=== PATIENT | female | born 1950 | race African-American/Black ===

== ENCOUNTER 2017-08-29 21:52 | Emergency (ER) | payer OTHER ==
--- NOTE | 2017-08-29 21:58 | ED MVC/FALL/TRAUMA COMPLAINT ---
History of Present Illness General Chief Complaint: Fall Stated Complaint: BIBA FALL Source: patient, old records, EMS Exam Limitations: no limitations Vital Signs & Intake/Output Vital Signs & Intake/Output Vital Signs Date Time Temp Pulse Resp B/P B/P Pulse O2 O2 Flow FiO2 Mean Ox Delivery Rate 08/30 0012 95.7 66 20 132/70 97 Room Air 08/29 2159 96.9 63 18 112/71 97 Room Air ED Intake and Output 08/30 0000 08/29 1200 Intake Total 0 Output Total 0 Balance 0 Intake, Oral 0 Output, Urine 0 Allergies Coded Allergies: No Known Allergies (08/29/17) Triage Nurses Notes Reviewed? yes Onset: Abrupt Duration: minute(s):, constant Timing: recent history Severity: mild Severity Numbers: 8 Injuries/Fall Location: upper extremity Method of Injury: fall Loss of Consciousness: no loss of consciousness No Modifying Factors: none Associated Symptoms: denies HPI: 67-year-old female presents while she was visiting a family member here in the emergency room had a mechanical slip and fall in room 9 fall to the ground onto her left elbow. She denies head strike there is no loss of consciousness. She denies any prodromal dizziness light and is chest pain prior to the fall. She is now complaining of left elbow pain radiating into her forearm. She denies any shoulder pain wrist or hand pain numbness or tingling. She denies any headache vision changes nausea vomiting. No neck or back pain that is new from the fall. She has a history of chronic lower back pain for which she is on Percocet. No abdominal pain, no lower extremity injury (Dain Jeffries) Past History Medical History Any Pertinent Medical History? see below for history Cardiovascular: hypertension Musculoskeletal: CHRONIC BACK PAIN Endocrine: diabetes Surgical History Surgical History: non-contributory Family History Hx Contributory? No (Dain Jeffries) Review of Systems Review of Systems Constitutional: Reports: see HPI. Comments Review of systems: See HPI, All other systems negative. Constitutional, no chills no fever, HEENT: no sore throat no congestion Cardiovascular: No chest pain Skin: no rashes, no change in skin Respiratory: No dyspnea no cough no sputum GI: No nausea no vomiting, no diarrhea, no bloating/constipation : No dysuria No hematuria, no frequency Muscle skeletal: joint pain, no back pain, no neck pain, Neurologic: , no headache Heme/endocrine: No bruising Immunology: No lymphadenopathy (Dain Jeffries) Physical Exam Physical Exam General Appearance: well developed/nourished, alert, awake Comments: Well-developed well-nourished person in no acute distress HEENT: Normal EENT exam; PERRL, EOMI, HEAD is atraumatic. moist mucous membranes. Neck: Supple,nontender normal range of motion Back: Nontender,no midline or paracervical tenderness, Full range of motion Cardiovascular: Regular rate and rhythms no murmur Respiratory: Chest nontender.There were no bony deformities, no asymmetry. No respiratory distress. Patient speaking in full complete sentences. Breath sounds clear to auscultation bilaterally: NO W/R/R Abdomen: Soft, nontender nondistended right upper extremity: atraumatic, from nontender Shoulder: Atraumatic/Stable. FROM . No clavicle tenderness Elbow: tender to palpation over the left elbow there is no ecchymosis or swelling, Atraumatic/stable. FROM. No laxity Upper arm/Forearm: Atraumatic. Nontender. No edema, 5 out of 5 train director strength noted to bilateral upper extremities Hand/Wrist: Atraumatic/stable. Skin intact. FROMno scaphoid tenderness no wrist tenderness Pulses: Normal/equal radial pulses bilaterally. Brisk cap refill LOWER Extremity:atraumatic, no shortening or external rotation noted to bilateral lower extremities No edema, full range of motion of extremities, 5 out of 5 strength noted to bilateral ower extremities Neuro: Alert oriented x3, motor sensory normal, cranial nerves II through XII grossly intact. There were no obvious focal neurologic abnormalities. Skin: No appreciable rash on exposed skin, skin is warm and dry. Psych: Mood and affect is normal, memory and judgment is normal. Core Measures ACS in differential dx? No CVA/TIA Diagnosis No Sepsis Present: No Sepsis Focused Exam Completed? No (Dain Jeffries) Progress Differential Diagnosis: C/T/L spine injury, ext injury, spinal cord injury Plan of Care: Orders Procedure Date/time Status XRY-FOREARM, LEFT 08/29 2209 Active XRY-ELBOW 3 OR MORE VIEWS, L 08/29 2209 Active Current Medications Sig/Chantel Start time Last Medication Dose Stop Time Status Admin Cyclobenzaprine HCl 5 MG ONCE ONE 08/29 2214 UNVr 08/29 (Flexeril 5MG Tab) 08/29 Oxycodone/ 2 TAB ONCE ONE 08/29 2214 UNVr 08/29 Acetaminophen 08/29 (Percocet) xray ordered, pt med with percocet and flexeril. trish denies any other complaints at this time from fall 001- she is declining anything else for pain when offered. I discussed with the patient at length all of their results.She has percocet for pain at home. I had an extensive conversation regarding need for close follow up with their primary care physician this week as well as return precautions. I answered all of their questions, they feel comfortable with the plan and follow-up care. Diagnostic Imaging: Viewed by Me: Radiology Read. Discussed w/RAD: Radiology Read. Radiology Impression: PATIENT: TRISH REESE PRESENT AGE: 67 PATIENT ACCOUNT NO: [id number] : 51 LOCATION: [facility], [place] ORDERING PHYSICIAN: Dain PALOMO SERVICE DATE: 08/29/17 EXAM TYPE: RAD - XRY-FOREARM, LEFT EXAMINATION: XR FOREARM, LEFT CLINICAL INFORMATION: Fall COMPARISON: None TECHNIQUE: AP and lateral views of the left forearm were obtained. FINDINGS: The bones and soft tissues are normal. No fracture. Imaged portions of the elbow and wrist are unremarkable. IMPRESSION: Normal left forearm. DICTATED BY: Caroline Yu MD DATE/TIME DICTATED:08/29/172329 GERIATRICS PHYSICIAN:MARIO DATE/ TIME TRANSCRIBED:08/29/172329 CONFIDENTIAL, DO NOT COPY WITHOUT APPROPRIATE AUTHORIZATION. <Electronically signed in Other Vendor System> SIGNED BY: Caroline Yu MD 08/29/172333, PATIENT: TRISH REESE PRESENT AGE: 67 PATIENT ACCOUNT NO: [id number] : 51 LOCATION: ER ORDERING PHYSICIAN: Dain PALOMO SERVICE DATE: 08/29/17 EXAM TYPE: RAD - XRY-ELBOW 3 OR MORE VIEWS, L EXAMINATION: XR ELBOW, LEFT CLINICAL INFORMATION: Fall COMPARISON: None TECHNIQUE: AP, lateral, and oblique views of the left elbow. FINDINGS: The bones and soft tissues are normal. No fracture or joint effusion. Alignment is anatomic. Joint spaces are maintained. IMPRESSION: Normal left elbow. DICTATED BY: Caroline Yu MD DATE/TIME DICTATED:08/29/172329 GERIATRICS PHYSICIAN:MARIO DATE/TIME TRANSCRIBED:08/29/172329 CONFIDENTIAL, DO NOT COPY WITHOUT APPROPRIATE AUTHORIZATION. <Electronically signed in Other Vendor System> SIGNED BY: Caroline Yu MD 08/29/172332 (Dain Jeffries) Departure Departure Time of Disposition: 2352 Disposition: HOME OR SELF CARE Condition: Stable Clinical Impression Primary Impression: Elbow contusion Qualifiers: Encounter type: initial encounter Laterality: left Qualified Code: S50.02XA - Contusion of left elbow, initial encounter Secondary Impressions: Fall Qualifiers: Encounter type: initial encounter Qualified Code: W19.XXXA - Unspecified fall, initial encounter Additional Instructions: rest, ice, take your pain medication as prescribed. follow up with your pmd this week, return with any concerns Departure Forms: Customer Survey General Discharge Information (Dain Jeffries) PA/TECHNOLOGY OFFICER Co-Sign Statement Statement: ED Attending supervision documentation- [] I saw and evaluated the patient. I have also reviewed all the pertinent lab results and diagnostic results. I agree with the findings and the plan of care as documented in the PA's/TECHNOLOGY OFFICER's documentation. [X] I have reviewed the ED Record and agree with the PA's/TECHNOLOGY OFFICER's documentation. [] Additions or exceptions (if any) to the PAs/TECHNOLOGY OFFICER's note and plan are summarized below: [] (Tawny FLETCHER,Ashwin Forrester)
--- NOTE | 2017-08-29 23:33 | RADIOLOGY REPORT ---
EXAMINATION: XR ELBOW, LEFT CLINICAL INFORMATION: Fall COMPARISON: None TECHNIQUE: AP, lateral, and oblique views of the left elbow. FINDINGS: The bones and soft tissues are normal. No fracture or joint effusion. Alignment is anatomic. Joint spaces are maintained. IMPRESSION: Normal left elbow.
--- NOTE | 2017-08-29 23:34 | RADIOLOGY REPORT ---
EXAMINATION: XR FOREARM, LEFT CLINICAL INFORMATION: Fall COMPARISON: None TECHNIQUE: AP and lateral views of the left forearm were obtained. FINDINGS: The bones and soft tissues are normal. No fracture. Imaged portions of the elbow and wrist are unremarkable. IMPRESSION: Normal left forearm.
[2017-08-30 00:12] VITALS: BP 132/70
== END 2017-08-30 00:17 ==
LOC: ERH 21:52
DX: S50.02XA Contusion of left elbow, initial encounter (principal); W19.XXXA Unspecified fall, initial encounter; Y92.238 Other place in hospital as the place of occurrence of the external cause; Y92.9 Unspecified place or not applicable; Y93.9 Activity, unspecified
CPT/HCPCS: 73080-LT; 73090-LT